=== PATIENT | female | born 1990 | race Caucasian/White ===

== ENCOUNTER 2017-10-05 09:22 | Outpatient (CLI) | payer OTHER | END 2017-10-05 09:23 | disposition critical access hospital (66) | LOC: EMS 09:22 | PROVIDERS: ATTEND Surgery | DX: R13.10 Dysphagia, unspecified (principal); R60.0 Localized edema | CPT/HCPCS: A0425; A0429 ==

== ENCOUNTER 2017-10-05 09:42 | Emergency (ER) | payer OTHER ==
--- NOTE | 2017-10-05 12:01 | ED Physician Documentation ---
PD HPI HEENT - Stated complaint Stated Complaint: THROAT PAIN - Chief complaint Chief Complaint: Heent - History obtained from History obtained from: Patient, Family - History of Present Illness Timing - onset: Today Timing - duration: Minutes Timing - details: Abrupt onset, Now resolved Location: Throat Associated symptoms: Other (nausea) Similar symptoms before: Has not had sx before Recently seen: Surgery - Additional information Additional information: 27-year-old female has had her tonsils removed 3 days ago. This morning she had an episode of acute bleeding and coughed up about a half a cup of blood. She has not had further bleeding since. She has had nausea and she has had nausea that started prior to the to any bleeding. She thinks it may be related to her pain medication. She does not usually have to take pain medication of any kind and she is taking oxycodone. Plain Tylenol was ineffective at pain relief as well as ibuprofen.She feels that she has been able to take enough fluids to stay hydrated. She is not eating food yet.She feels that the Zofran that was prescribed yesterday is inadequate for control of her nausea. Review of Systems Constitutional: denies: Fever Eyes: denies: Decreased vision Ears: denies: Ear pain Nose: denies: Rhinorrhea / runny nose, Congestion Throat: reports: Sore throat Cardiac: denies: Chest pain / pressure, Palpitations Respiratory: denies: Dyspnea, Cough GI: reports: Nausea, Vomiting. denies: Abdominal Pain : denies: Dysuria, Frequency Skin: denies: Rash, Abrasion (s) Musculoskeletal: denies: Back pain PD PAST MEDICAL HISTORY - Past Medical History Past Medical History: Yes - Past Surgical History Past Surgical History: Yes Ortho: Other HEENT: Tonsil/Adenoidectomy - Present Medications Home Medications: Ambulatory Orders Medication Instructions Recorded Confirmed Promethazine [Phenergan] 25 - 50 mg PO Q6H PRN #10 tab 10/05/17 Tramadol HCl 50 - 100 mg PO Q6HR PRN #20 tablet 10/05/17 - Allergies Allergies/Adverse Reactions: Allergies Allergy/AdvReac Type Severity Reaction Status Date / Time Iodinated Contrast- Oral and Allergy Hives Verified 10/05/17 09:49 IV Dye Penicillins Allergy Hives Verified 10/05/17 09:48 - Social History Does the pt smoke?: No Smoking Status: Former smoker Does the pt drink ETOH?: Yes Does the pt have substance abuse?: No - Immunizations Immunizations are current?: Yes - POLST Patient has POLST: No PD ED PE NORMAL - Vitals Vital signs reviewed: Yes (normal ) - General General: Alert and oriented X 3, No acute distress, Well developed/nourished - HEENT HEENT: Atraumatic, PERRL, EOMI, Other (exam of the posterior pharynx shows the typical white membrane uniformly over the tonsillar bed. There is no active or recent bleeding apparent. ) - Neck Neck: Supple, no meningeal sign, No bony TTP - Respiratory Respiratory: No respiratory distress - Derm Derm: Normal color, Warm and dry, No rash - Extremities Extremities: No deformity, No edema - Neuro Neuro: Alert and oriented X 3, sports analyst 2-12 intact, No motor deficit, No sensory deficit, Normal speech Eye Opening: Spontaneous Motor: Obeys Commands Verbal: Oriented GCS Score: 15 - Psych Psych: Normal mood, Other (affect is flat) Results - Vitals Vitals: Vital Signs - 24 hr 10/05/17 09:43 Temperature 35.9 C L Heart Rate 96 Respiratory 16 Rate Blood Pressure 122/69 O2 Saturation 100 Oxygen O2 Source Room air PD MEDICAL DECISION MAKING - ED course Complexity details: considered differential, d/w patient, d/w family ED course: 27-year-old female 3 days post tonsillectomy has had acute bleeding that now appears resolved. She appears to have some intolerance to her pain medication with some nausea that is not improved by the use of Zofran. I have offered to add Phenergan and as the anti-medic and offered the alternative pain medication of tramadol. I have discussed with the patient our lack of resources at this facility and indicated to her that should she have acute bleeding again she should attempt to get to [facility] where the ENT will be able to see her without delay in care. - Sepsis Event Vital Signs: Vital Signs - 24 hr 10/05/17 09:43 Temperature 35.9 C L Heart Rate 96 Respiratory 16 Rate Blood Pressure 122/69 O2 Saturation 100 Oxygen O2 Source Room air Departure - Departure Disposition: 01 Home, Self Care Clinical Impression: Post-tonsillectomy hemorrhage Condition: Stable Instructions: ED Tonsillectomy Post Op Bleeding Follow-Up: XAVIER LABOY DO [Primary Care Provider] - Ivan Bermudez MD [Physician No Access] - Prescriptions: Tramadol HCl 50 - 100 mg PO Q6HR PRN #20 tablet PRN Reason: Pain Promethazine [Phenergan] 25 - 50 mg PO Q6H PRN #10 tab PRN Reason: Nausea / Vomiting
[2017-10-05 12:17] VITALS: BP 127/71
== END 2017-10-05 12:25 | disposition home or self-care (01) ==
LOC: ED 09:42
DX: J95.831 Postprocedural hemorrhage of a respiratory system organ or structure following other procedure (principal); Z87.891 Personal history of nicotine dependence
CPT/HCPCS: 99283

== ENCOUNTER 2022-07-12 01:15 | Emergency (ER) | payer OTHER ==
[2022-07-12 01:54] VITALS: BP 144/97
== END 2022-07-12 05:17 | disposition left against medical advice (07) ==
LOC: ED 01:15
DX: Z53.21 Procedure and treatment not carried out due to patient leaving prior to being seen by health care provider (principal)